=== PATIENT | female | born 1955 | race African-American/Black ===

== ENCOUNTER 2019-09-07 15:47 | Inpatient (IN) | payer MEDICAID ==
[~2019-09-07] VITALS: Ht 165.1 cm; Wt 86.6 kg
[2019-09-07] MEDS ORDERED: SODIUM CHLORIDE 0.9% 1,000 ML IV ONE (16:16)
[2019-09-07] MEDS ORDERED: IBUPROFEN 600MG TABLET PO ONE (16:30)
[2019-09-07] MEDS ORDERED: ASPIRIN 81MG TABLET PO ONE (16:45)
[2019-09-07 17:36] LABS: CHLORIDE 108 mEq/L (98-107)
[2019-09-07 17:42] LABS: BASOPHILS % 0.8 % (0.0-2.0); EOSINOPHILS % 4.3 % (0.0-5.0); HEMATOCRIT. 40.2 % (36.0-48.0); HEMOGLOBIN. 13.1 g/dL (12.0-16.0); LYMPHOCYTES % 15.5 % (20.0-50.0); MEAN CORPUSCULAR HEMOGLOBIN 30.1 pg (28.0-32.0); MEAN CORPUSCULAR VOLUME 92.2 fL (81.0-99.0); MEAN PLATELET VOLUME 9.9 fl (7.4-10.4); NEUTROPHILS % 74.4 % (40.0-76.0); PLATELET 287 x1000/uL (130-400); RED BLOOD CELL COUNT 4.36 mill/uL (4.2-5.4); RED CELL DISTRIBUTION WIDTH 15.7 % (11.6-14.6)
[2019-09-07] MEDS ORDERED: ONDANSETRON HCL 4MG/2ML INJ IV PRN (19:30)
[2019-09-07] MEDS ORDERED: MORPHINE SULFATE 2 MG/ML CPJ (NOT FOR IM USE) IV PRN (19:30)
[2019-09-07] MEDS ORDERED: CLONIDINE 0.1MG TABLET PO PRN (19:30)
[2019-09-07] MEDS ORDERED: DIPHENHYDRAMINE 50MG/ML VIAL IV PRN (19:30)
[2019-09-07 19:44] LABS: COLOR URINE YELLOW (YELLOW); KETONES URINE NEGATIVE (NEGATIVE); LEUKOCYTE ESTERASE URINE NEGATIVE (NEGATIVE); NITRITE URINE NEGATIVE (NEGATIVE); OCCULT BLOOD URINE NEGATIVE (NEGATIVE); PROTEIN URINE 1+ (NEGATIVE); SPECIFIC GRAVITY URINE 1.019 (1.005-1.030); UROBILINOGEN URINE 0.2 E.U./dL (0.2-1.0)
[2019-09-07 19:46] LABS: CLARITY URINE HAZY (CLEAR)
[2019-09-07 20:03] LABS: PHOSPHORUS 2.7 mg/dL (2.5-4.9)
[2019-09-07] MEDS: ACETAMINOPHEN 325MG TABLET PO PRN (20:19)
[2019-09-07] MEDS: ENOXAPARIN 40MG/0.4ML SYR SUBCUT SCH (23:31)
[2019-09-08 05:30] VITALS: BP 166/90
[2019-09-08] MEDS: ACETAMINOPHEN 325MG TABLET PO PRN ×2 (06:11→17:18)
[2019-09-08] MEDS ORDERED: DULO20CA18 PO (08:08)
[2019-09-08] MEDS ORDERED: DOCU50CA11 PO (08:08)
[2019-09-08] MEDS ORDERED: BENA5TAB6 PO (08:08)
[2019-09-08] MEDS ORDERED: METH4TAB17 PO (08:08)
[2019-09-08] MEDS ORDERED: CYCL5TAB PO (08:08)
[2019-09-08 09:42] VITALS: BP 129/78
[2019-09-08 11:21] LABS: LYMPHOCYTES % 21.2 % (20.0-50.0); MEAN CORPUSCULAR HEMOGLOBIN 30.3 pg (28.0-32.0); MEAN CORPUSCULAR VOLUME 90.9 fL (81.0-99.0); MEAN PLATELET VOLUME 9.7 fl (7.4-10.4); MONOCYTES % 5.5 % (2.0-8.0); NEUTROPHILS % 66.3 % (40.0-76.0); PLATELET 265 x1000/uL (130-400); RED BLOOD CELL COUNT 3.96 mill/uL (4.2-5.4); RED CELL DISTRIBUTION WIDTH 15.3 % (11.6-14.6)
[2019-09-08 11:46] LABS: CHLORIDE 110 mEq/L (98-107)
[2019-09-08 11:54] LABS: LDL CHOLESTEROL 129 mg/dL (5-100)
[2019-09-08 11:55] LABS: HDL CHOLESTEROL 47 mg/dL (40-59)
[2019-09-08 12:37] VITALS: BP 155/86
[2019-09-08] MEDS ORDERED: POTASSIUM CHLORIDE 20MEQ TABLET SR PO NR (16:30)
[2019-09-08 16:55] VITALS: BP 135/94
[2019-09-08] MEDS: BENAZEPRIL 5MG TABLET PO SCH (17:17)
[2019-09-08] MEDS: DULOXETINE HCL 20MG DR CAPSULE PO SCH (17:18)
[2019-09-08 20:00] VITALS: BP 155/97
[2019-09-08] MEDS: ENOXAPARIN 40MG/0.4ML SYR SUBCUT SCH (20:35)
[2019-09-08] MEDS ORDERED: ATORVASTATIN CALCIUM 20MG TABLET PO SCH (21:00)
[2019-09-09] VITALS: BP 159/101
[2019-09-09 04:00] VITALS: BP 136/75
[2019-09-09 06:24] LABS: BASOPHILS % 1.1 % (0.0-2.0); EOSINOPHILS % 5.3 % (0.0-5.0); HEMATOCRIT. 36.6 % (36.0-48.0); HEMOGLOBIN. 12.2 g/dL (12.0-16.0); MEAN CORPUSCULAR HEMOGLOBIN 30.3 pg (28.0-32.0); MEAN CORPUSCULAR VOLUME 91.1 fL (81.0-99.0); MEAN PLATELET VOLUME 10.2 fl (7.4-10.4); MONOCYTES % 5.2 % (2.0-8.0); NEUTROPHILS % 63.4 % (40.0-76.0); PLATELET 254 x1000/uL (130-400); RED BLOOD CELL COUNT 4.01 mill/uL (4.2-5.4); RED CELL DISTRIBUTION WIDTH 15.3 % (11.6-14.6)
[2019-09-09 06:29] LABS: CHLORIDE 110 mEq/L (98-107)
[2019-09-09 08:00] VITALS: BP 151/103
[2019-09-09] MEDS: BENAZEPRIL 5MG TABLET PO SCH (09:03)
[2019-09-09] MEDS: ACETAMINOPHEN 325MG TABLET PO PRN (09:03)
[2019-09-09] MEDS: DULOXETINE HCL 20MG DR CAPSULE PO SCH (09:03)
[2019-09-09 12:00] VITALS: BP 90/48
[2019-09-09] MEDS ORDERED: ATOR20TA PO (15:22)
[2019-09-09 16:13] VITALS: BP 105/54
[2019-09-10 06:10] LABS: HIV SCREEN 4G Non Reactive (Non Reactive)
== END 2019-09-09 16:54 | disposition home or self-care (01) | DRG 58 ==
LOC: ER 15:47 → MICUSO 18:54 → 7WST 09-08 05:28
PROVIDERS: ADMIT Internal Medicine; ATTEND Internal Medicine
DX: R43.0 Anosmia (principal); R63.4 Abnormal weight loss; E87.6 Hypokalemia; Z20.828 Contact with and (suspected) exposure to other viral communicable diseases; R07.9 Chest pain, unspecified; F32.9 Major depressive disorder, single episode, unspecified; M19.90 Unspecified osteoarthritis, unspecified site; K02.9 Dental caries, unspecified; R63.0 Anorexia; E78.5 Hyperlipidemia, unspecified; Z88.0 Allergy status to penicillin; Z68.31 Body mass index [BMI] 31.0-31.9, adult
CPT/HCPCS: 36415; 71045; 80048; 80053; 80061; 81003; 83735; 83880; 84100; 84443; 84484; 85025; 87389; 87635; 93005; 96372; 99285; J1650; J2270; J7030

== ENCOUNTER 2020-03-24 10:47 | Emergency (ER) | payer MEDICAID ==
[~2020-03-24] VITALS: Ht 165.1 cm; Wt 73.0 kg
[~2020-03-24 10:47] MED LIST: ATOR20TA PO; BENA10TA74 MT; CLIN300C12 MT; GUAI600T26 MT; HYDR-4009 MT; MEGE400O4 PO; P50 MT; PANT40TA51 MT; TOPUD MT
[2020-03-24 10:52] VITALS: BP 138/92
== END 2020-03-24 11:16 | disposition left against medical advice (07) ==
LOC: ER 10:47
DX: Z53.21 Procedure and treatment not carried out due to patient leaving prior to being seen by health care provider (principal); R07.89 Other chest pain

== ENCOUNTER 2020-05-13 05:28 | Inpatient (IN) | payer MEDICAID ==
[~2020-05-13] VITALS: Ht 162.6 cm; Wt 51.3 kg
[2020-05-13] MEDS ORDERED: ONDANSETRON HCL 4MG/2ML INJ IV STA (05:36)
[2020-05-13] MEDS ORDERED: ACETAMINOPHEN 325MG TABLET PO STA (05:36)
[2020-05-13] MEDS ORDERED: MORPHINE SULFATE 4 MG/ML CPJ (NOT FOR IM USE) IV STA (05:36)
[2020-05-13] MEDS ORDERED: VANCOMYCIN 1 G PREMIX 200 ML IV SCH (05:45)
[2020-05-13] MEDS ORDERED: PIPERACILLIN/TAZOBACTAM 3.375GM/50ML PREMIX IV ONE (05:45)
[2020-05-13 06:02] LABS: CHLORIDE 107 mEq/L (98-107)
[2020-05-13 06:11] LABS: CREATINE KINASE 236 IU/L (26-192)
[2020-05-13] MEDS ORDERED: MEROPENEM 1,000 MG in SODIUM CHLORIDE 0.9% 100 ML IV ONE (06:30)
[2020-05-13] MEDS ORDERED: SODIUM CHLORIDE 0.9% 1,000 ML IV ONE (07:00)
[2020-05-13 07:05] LABS: BASOPHILS % 0.7 % (0.0-2.0); EOSINOPHILS % 0.3 % (0.0-5.0); HEMATOCRIT. 30.7 % (36.0-48.0); HEMOGLOBIN. 9.3 g/dL (12.0-16.0); MEAN CORPUSCULAR HEMOGLOBIN 32.6 pg (28.0-32.0); MEAN CORPUSCULAR VOLUME 107.7 fL (81.0-99.0); MEAN PLATELET VOLUME 9.3 fl (7.4-10.4); MONOCYTES % 3.1 % (2.0-8.0); NEUTROPHILS % 73.9 % (40.0-76.0); PLATELET 403 x1000/uL (130-400); RED BLOOD CELL COUNT 2.85 mill/uL (4.2-5.4); RED CELL DISTRIBUTION WIDTH 17.7 % (11.6-14.6)
[2020-05-13 09:16] LABS: INR 1.6
[2020-05-13 09:18] LABS: CLARITY URINE CLEAR (CLEAR); COLOR URINE DARK YELLOW (YELLOW); KETONES URINE NEGATIVE (NEGATIVE); LEUKOCYTE ESTERASE URINE TRACE (NEGATIVE); NITRITE URINE NEGATIVE (NEGATIVE); OCCULT BLOOD URINE NEGATIVE (NEGATIVE); PROTEIN URINE TRACE (NEGATIVE); SPECIFIC GRAVITY URINE 1.026 (1.005-1.030); UROBILINOGEN URINE 0.2 E.U./dL (0.2-1.0)
[2020-05-13] MEDS ORDERED: SODIUM CHLORIDE 0.9% 1000ML BAG (SEPSIS BOLUS) IV ONE (09:30)
[2020-05-13] MEDS ORDERED: ONDANSETRON HCL 4MG/2ML INJ IV PRN (11:00)
[2020-05-13] MEDS: MIDODRINE HCL 5MG TABLET PO SCH ×2 (11:00→17:00)
[2020-05-13] MEDS ORDERED: ACETAMINOPHEN 325MG TABLET PO PRN (11:00)
[2020-05-13] MEDS ORDERED: LEVOFLOXACIN 500MG PREMIX 100 ML IV NR (11:00)
[2020-05-13] MEDS ORDERED: ALBUTEROL 6.7GM HFA INHALER ORI PRN (11:00)
[2020-05-13] MEDS ORDERED: ALBUTEROL (0.083%) 2.5MG/3ML NEB HHN PRN (11:00)
[2020-05-13] MEDS ORDERED: SODIUM CHLORIDE 0.9% 1,000 ML IV SCH (11:00)
[2020-05-13] MEDS ORDERED: ENOXAPARIN 30MG/0.3ML SYR SUBCUT SCH (12:00)
[2020-05-13] MEDS ORDERED: VASOPRESSIN 20 UNIT in SODIUM CHLORIDE 0.9% 99 ML IV PRN (13:00)
[2020-05-13] MEDS ORDERED: LIDOCAINE HCL 1% 20ML VIAL (Pyxis) INJ ONE (13:14)
[2020-05-13 15:52] LABS: *AMPHETAMINES SCREEN URINE NEGATIVE (NEGATIVE); *BARBITURATES SCREEN URINE NEGATIVE (NEGATIVE); *BENZODIAZEPINES SCREEN URINE NEGATIVE (NEGATIVE); *COCAINE SCREEN URINE NEGATIVE (NEGATIVE)
[2020-05-13 15:53] LABS: CANNABINOID URINE SCREEN NEGATIVE (NEGATIVE); METHADONE URINE SCREEN NEGATIVE (NEGATIVE); OPIATES URINE SCREEN PRESUMTIVE POSITIVE (NEGATIVE); PHENCYCLIDINE URINE SCREEN NEGATIVE (NEGATIVE)
[2020-05-13] MEDS ORDERED: NOREPINEPHRINE 8 MG in DEXTROSE 5% WATER 250 ML IV PRN (22:45)
[2020-05-14] VITALS (24 sets, daily range): BP systolic 37–146; BP diastolic 14–49
[2020-05-14 04:31] LABS: HEMATOCRIT. 27.3 % (36.0-48.0); HEMOGLOBIN. 8.3 g/dL (12.0-16.0); MEAN CORPUSCULAR HEMOGLOBIN 33.7 pg (28.0-32.0); MEAN CORPUSCULAR VOLUME 111.2 fL (81.0-99.0); MEAN PLATELET VOLUME 8.9 fl (7.4-10.4); PLATELET 364 x1000/uL (130-400); RED BLOOD CELL COUNT 2.45 mill/uL (4.2-5.4); RED CELL DISTRIBUTION WIDTH 17.7 % (11.6-14.6)
[2020-05-14 05:30] LABS: VITAMIN B12 SERUM > 2000.0 pg/mL (211-911)
[2020-05-14] MEDS ORDERED: PHENYLEPHRINE 100 MG in DEXT 5% WATER 240 ML IV PRN (06:15)
[2020-05-14] MEDS ORDERED: DEXTROSE 50% WATER 50ML SYRINGE IV PRN (06:30)
[2020-05-14] MEDS ORDERED: BLOOD SUGAR DIAGNOSTIC STRIP TEST SCH (06:30)
[2020-05-14] MEDS ORDERED: EPINEPHRINE 10 MG in SODIUM CHLORIDE 0.9% 240 ML IV PRN (06:30)
[2020-05-14 06:47] LABS: BG BASE EXCESS -23.4 mmol/L (-2.0-2.0); BG CARBOXYHEMOGLOBIN 0.3 % (0.5-1.5); BG DEOXYHEMOGLOBIN 5.6 % (0.0-5.0); BG FRACTION INSPIRED OXYGEN 60; BG HCO3 ACT 6.9 mmol/L (22.0-26.0); BG METHEMOGLOBIN 0.6 % (0.0-1.5); BG OXYGEN SATURATION 94.3 % (92.0-98.5); BG OXYHEMOGLOBIN 93.5 % (94.0-97.0); BG PCO2 32.2 mmHg (35.0-45.0); BG PO2 106.4 mmHg (75.0-100.0); BG SAMPLE SITE RIGHT BRACHIAL; BG TOTAL HEMOGLOBIN 7.5 g/dL (12.0-18.0); BG VENT MODE MASK - SIMPLE
[2020-05-14] MEDS ORDERED: DEXT 5%/0.9% NACL 1,000 ML IV SCH (07:00)
[2020-05-14] MEDS ORDERED: DEXTROSE 50% WATER 50ML SYRINGE IV SCH (07:00)
[2020-05-14] MEDS ORDERED: SODIUM BICARBONATE 8.4% 1 MEQ/ML 50ML SYR IV SCH (07:00)
[2020-05-14] MEDS ORDERED: SODIUM BICARBONATE 8.4% 1 MEQ/ML 50ML SYR IV ONE (07:13)
[2020-05-14] MEDS ORDERED: SODIUM BICARBONATE 8.4% 1 MEQ/ML 50ML SYR IV NR (07:26)
[2020-05-14] MEDS ORDERED: SODIUM BICARBONATE 150 MEQ in DEXTROSE 5% WATER 1,000 ML IV SCH (08:30)
[2020-05-14] MEDS: MIDODRINE HCL 5MG TABLET PO SCH (08:33)
[2020-05-14] MEDS ORDERED: ASPIRIN 81MG TABLET PO SCH (09:00)
[2020-05-14 09:16] LABS: NUCLEATED RED BLOOD CELLS 1 /100 WBC
[2020-05-14 09:17] LABS: PLATELET ESTIMATE NORMAL
[2020-05-14] MEDS ORDERED: MORPHINE SULFATE 250 MG in DEXT 5% WATER 240 ML IV PRN (10:00)
[2020-05-14] MEDS ORDERED: LORAZEPAM 2MG/ML CPJ IV SCH (10:00)
[2020-05-14] MEDS ORDERED: LEVOFLOXACIN 250MG PREMIX 50 ML IV SCH (11:00)
[2020-05-15] MEDS ORDERED: LEVOFLOXACIN 250MG PREMIX 50 ML IV SCH (09:00)
== END 2020-05-14 11:00 | DRG 720 ==
LOC: ER 05:28 → MICUSO 08:45 → ENRESERV 10:35 → EDBEDREQSVC 10:58 → EDBEDREQTM 10:59 → EDBEDREQ 13:37 → ENRESERV 05-14 04:40
PROVIDERS: ADMIT Internal Medicine; ATTEND Internal Medicine
PROC: 05HY33Z Insertion of Infusion Device into Upper Vein, Percutaneous Approach (ICD-10-PCS; principal; 2020-05-13)
PROC: B54MZZA Ultrasonography of Right Upper Extremity Veins, Guidance (ICD-10-PCS; 2020-05-13)
DX: A41.9 Sepsis, unspecified organism (principal); I10 Essential (primary) hypertension; E87.2 Acidosis; R00.0 Tachycardia, unspecified; C34.90 Malignant neoplasm of unspecified part of unspecified bronchus or lung; J96.21 Acute and chronic respiratory failure with hypoxia; R65.21 Severe sepsis with septic shock; F17.210 Nicotine dependence, cigarettes, uncomplicated; N17.9 Acute kidney failure, unspecified; Z20.822 Contact with and (suspected) exposure to COVID-19; C79.89 Secondary malignant neoplasm of other specified sites; J18.9 Pneumonia, unspecified organism; J44.0 Chronic obstructive pulmonary disease with (acute) lower respiratory infection; N39.0 Urinary tract infection, site not specified; D53.9 Nutritional anemia, unspecified; R74.01 Elevation of levels of liver transaminase levels; E43 Unspecified severe protein-calorie malnutrition; D68.9 Coagulation defect, unspecified; Z66 Do not resuscitate; Z51.5 Encounter for palliative care; I21.A1 Myocardial infarction type 2; Z85.118 Personal history of other malignant neoplasm of bronchus and lung; Z88.0 Allergy status to penicillin; Z79.899 Other long term (current) drug therapy; Z79.891 Long term (current) use of opiate analgesic; Z79.1 Long term (current) use of non-steroidal anti-inflammatories (NSAID); Z68.1 Body mass index [BMI] 19.9 or less, adult
CPT/HCPCS: 36415; 36600; 71045; 76937; 78580; 80048; 80053; 80305; 81003; 82375; 82550; 82607; 82728; 82746; 82805; 82962; 83605; 83615; 83880; 84145; 84484; 85025; 85384; 87106; 87804; 93005; 93970; 99291; C1725; C1893; J1956; J2185; J2270; J2405; J3370; J3490; J7030; J7050; J7060; J7070; U0003